=== PATIENT | female | born 1975 | race Hispanic/Latino ===

== ENCOUNTER 2016-03-27 02:00 | Emergency (ER) | payer OTHER ==
[~2016-03-27] VITALS: Ht 167.6 cm; Wt 77.1 kg
--- NOTE | 2016-03-27 04:06 | ED GI/GU/ABDOMINAL COMPLAINT ---
History of Present Illness General Chief Complaint: Abdominal Pain/Flank Pain Stated Complaint: "PER PT PAIN "RIGHT LOWER QUADRANT Source: patient, old records Exam Limitations: no limitations Vital Signs & Intake/Output Vital Signs & Intake/Output Vital Signs Date Time Temp Pulse Resp B/P Pulse O2 O2 Flow FiO2 Ox Delivery Rate 03/27 0248 97.8 84 18 144/84 100 Room Air Allergies Coded Allergies: NO KNOWN ALLERGIES (10/03/11) Reconcile Medications Diclofenac Sodium 75 MG TABLET.DR 1 TAB PO BID PRN PAIN Ondansetron (Zofran Odt) 4 MG TAB.RAPDIS 1 TAB SL Q6P PRN NAUSEA/VOMITING Triage Note: RLQ ABD PAIN STARTED AT MIDNIGHT, FEELS LIKE SOMETHING IS TWISTING, WORSE WITH MOVEMENT Triage Nurses Notes Reviewed? yes ? N Is pt currently ? No HPI: Patient presents for evaluation of right lower quadrant abdominal pain that began rather abruptly at about midnight (roughly 4 hours ago while at work). Patient is describing a constant pressure-like pain that fluctuates in intensity and gets worse with movements. Patient denies any prior episodes like this. Patient denies injury or trauma. She states while here in the emergency department she began feeling a pressure sensation when she urinated. She denies associated fever, cold symptoms, chest pain, shortness of breath, nausea, vomiting or diarrhea. Past History Travel History Traveled to [place] past 21 day No Medical History Any Pertinent Medical History? see below for history Neurological: NONE EENT: NONE Cardiovascular: NONE Respiratory: asthma Gastrointestinal: NONE Hepatic: NONE Renal: NONE Musculoskeletal: NONE Psychiatric: NONE Endocrine: NONE Blood Disorders: NONE Cancer(s): NONE Influenza Vaccine: 11/14/11 Surgical History Surgical History: non-contributory Psychosocial History What is your primary language [place] Citizen Tobacco Use: Never used Family History Hx Contributory? No Review of Systems Review of Systems Constitutional: Reports: no symptoms. EENTM: Reports: no symptoms. Respiratory: Reports: no symptoms. Cardiovascular: Reports: no symptoms. GI: Reports: see HPI. Genitourinary: Reports: no symptoms. Musculoskeletal: Reports: no symptoms. Skin: Reports: no symptoms. Neurological/Psychological: Reports: no symptoms. Hematologic/Endocrine: Reports: no symptoms. Immunologic/Allergic: Reports: no symptoms. All Other Systems: Reviewed and Negative Physical Exam Physical Exam Gastrointestinal: see below Comments: Gen.: Well-nourished, well-developed, no acute respiratory distress. Head: Normocephalic, atraumatic. Eyes: Normal inspection bilaterally Ears: Normal inspection bilaterally Nose: Normal inspection Throat/mouth : Moist mucosa Neck: Supple, full range of motion, no goiter Heart: Regular rate and rhythm, no murmurs rubs or gallops Lungs: Clear to auscultation bilaterally with normal air entry Chest: Nontender Back: Normal range of motion Abdomen: Soft, right lower quadrant abdominal tenderness without rebound or guarding or palpable masses, nondistended, normal bowel sounds Extremities: Normal range of motion grossly, equal radial pulses, no cyanosis clubbing or edema Neurologic: Cranial nerves grossly intact, speech is clear Skin: warm and dry Psychiatric: Calm, cooperative, no apparent delusions or hallucinations Core Measures ACS in differential dx? No Severe Sepsis Present: No Septic Shock Present: No Progress Differential Diagnosis: appendicitis, kidney stone, ovarian cyst Plan of Care: Orders Procedure Date/time Status LIPASE 03/27 404 Complete COMPREHENSIVE METABOLIC PANEL 03/27 404 Complete CBC WITHOUT DIFFERENTIAL 03/27 404 Complete URINE 03/27 024 Complete URINALYSIS 03/27 024 Complete Laboratory Tests 03/27/16 0427: Anion Gap 12, Estimated GFR > 60, BUN/Creatinine Ratio 18.8, Glucose 83, Calcium 9.1, Total Bilirubin 0.3, AST 21, ALT 36, Alkaline Phosphatase 63, Total Protein 7.2, Albumin 4.0, Globulin 3.2, Albumin/Globulin Ratio 1.3, Lipase 178, CBC w Diff NO MAN DIFF REQ, RBC 4.50, MCV 70.3 L, MCH 22.5 L, RDW 17.2 H, MPV 9.1, Gran % 60.6, Lymphocytes % 26.6, Monocytes % 7.7, Eosinophils % 4.3, Basophils % 0.8, Absolute Granulocytes 5.5, Absolute Lymphocytes 2.4, Absolute Monocytes 0.7 H, Absolute Eosinophils 0.4, Absolute Basophils 0.1, PUBS MCHC 32.0 L 03/27/16 0255: Urine Color YEL, Urine Clarity CLEAR, Urine pH 6.0, Ur Specific [place] 1.025, Urine Protein NEG, Urine Ketones TRACE H, Urine Nitrite NEG, Urine Bilirubin NEG, Urine Urobilinogen 0.2, Ur Leukocyte Esterase NEG, Ur Microscopic EXAM NOT REQUIRED, Urine Hemoglobin NEG, Urine Glucose NEG, Urine Test NEGATIVE Diagnostic Imaging: Discussed w/RAD: CT Scan. Radiology Impression: PATIENT: ROSMERY SILVA PRESENT AGE: 40 PATIENT ACCOUNT NO: [id number] : 76 LOCATION: [facility] ORDERING PHYSICIAN: MITCHELL ROSARIO MD SERVICE DATE: 03/27/16 EXAM TYPE: CAT - CT ABD & PELVIS W/O IV CONTRAS EXAMINATION: CT ABDOMEN AND PELVIS WITHOUT CONTRAST CLINICAL INFORMATION: Right lower quadrant abdominal pain with pressure during urination COMPARISON: 07/03/2012 TECHNIQUE: Multidetector volumetric imaging was performed from the superior aspect of the liver through the pubic symphysis. Sagittal and coronal reformatted images were obtained on the technologist's workstation. DLP: 676.55 mGy-cm FINDINGS: LUNG BASES: The visualized lung bases are unremarkable. LIVER, GALLBLADDER, AND BILIARY TREE: The liver is normal in size, shape, and attenuation. No focal hepatic lesion or biliary ductal dilatation is present. Patient is status post cholecystectomy. PANCREAS: Unremarkable. SPLEEN: Unremarkable. ADRENAL GLANDS: Unremarkable. KIDNEYS AND URETERS: The kidneys are normal in size, shape, and attenuation. No hydronephrosis, hydroureter, or calculi seen. No perinephric stranding. BLADDER: Only minimally distended and not well evaluated. GASTROINTESTINAL TRACT: The small and large bowel are unremarkable. The appendix is unremarkable. ABDOMINAL WALL: No significant hernia is appreciated. LYMPH NODES: Normal. VASCULAR: Unremarkable. PELVIC VISCERA: Grossly unremarkable. A small amount of free fluid is noted. OSSEOUS STRUCTURES: Unremarkable. IMPRESSION: Small volume of nonspecific pelvic free fluid which may be physiologic. No additional acute findings identified. DICTATED BY: WINSOME JOHNSON MD DATE/TIME DICTATED:03/27/16454 [place] SALESPERSON:BARBARA DATE/TIME TRANSCRIBED:03/27/16454 CONFIDENTIAL, DO NOT COPY WITHOUT APPROPRIATE AUTHORIZATION. <Electronically signed in Other Vendor System> SIGNED BY: WINSOME JOHNSON MD 03/27/16 3286 Initial ED EKG: none Comments: Patient declined pain medication. 03/27/2016 5:17:58 AM I have updated ROSMERY on her test results. The cause of her abdominal pain is unclear at this point. She will follow-up with her primary care doctor for reevaluation and further testing or perhaps for specialty referral. Departure Departure Disposition: HOME OR SELF CARE Condition: Stable Clinical Impression Primary Impression: Nonspecific abdominal pain Referrals: AILIN COLMENARES MD (PCP/Family) Additional Instructions: Zofran as needed for nausea or vomiting, Voltaren as needed for pain. Follow-up with your primary care doctor in 24-48 hours not improving. Return if any concerns or sudden worsening. Please note that there might be incidental findings in your evaluation that are unrelated to the current emergency department visit. Please notify your primary care doctor about this emergency department visit in order to obtain and review all of the testing performed so that these incidental findings can be monitored as needed. If you had an x-ray performed, please understand that some fractures may not be seen on the initial set of x-rays. If your symptoms persist you might need a repeat set of x-rays to check for such a fracture. If you had a laceration evaluated, please understand that foreign bodies such as glass or wood may not be visible to the naked eye or on plain x-rays. If the wound becomes red, swollen, increasingly more painful or if there is any drainage from the wound, please have it reevaluated by a physician for the possibility of a retained foreign body. Thank you for choosing the [facility] Emergency Department for your care. It was a pleasure to serve you today. Mitchell Rosario M.D. [facility] Departure Forms: Customer Survey General Discharge Information Prescriptions: Current Visit Scripts Diclofenac Sodium 1 TAB PO BID PRN PAIN #14 TAB Ondansetron (Zofran Odt) 1 TAB SL Q6P PRN NAUSEA/VOMITING #10 TAB
[2016-03-27 04:47] LABS: ABSOLUTE BASOPHIL COUNT 0.1 /CUMM (0.0-0.2); ABSOLUTE EOSINOPHIL COUNT 0.4 /CUMM (0.0-0.7); ABSOLUTE GRANULOCYTE CT 5.5 /CUMM (1.4-6.5); ABSOLUTE LYMPH COUNT 2.4 /CUMM (1.2-3.4); ABSOLUTE MONOCYTE COUNT 0.7 /CUMM (0.10-0.60); BASOPHIL % 0.8 % (0.0-2.0); EOSINOPHIL % 4.3 % (0-5); GRANULOCYTE % 60.6 % (42.2-75.2); HEMATOCRIT 31.6 % (37-47); MEAN CORPUSCULAR HGB 22.5 PG (27.0-31.0); MEAN CORPUSCULAR VOLUME 70.3 FL (81.0-99.0); MEAN PLATELET VOLUME 9.1 FL (7.4-10.4); PLATELET COUNT 258 /CUMM (130-400); RBC DISTRIBUTION WIDTH 17.2 % (11.5-14.5)
--- NOTE | 2016-03-27 05:05 | CT SCAN REPORT ---
EXAMINATION: CT ABDOMEN AND PELVIS WITHOUT CONTRAST CLINICAL INFORMATION: Right lower quadrant abdominal pain with pressure during urination COMPARISON: 07/03/2012 TECHNIQUE: Multidetector volumetric imaging was performed from the superior aspect of the liver through the pubic symphysis. Sagittal and coronal reformatted images were obtained on the technologist's workstation. DLP: 676.55 mGy-cm FINDINGS: LUNG BASES: The visualized lung bases are unremarkable. LIVER, GALLBLADDER, AND BILIARY TREE: The liver is normal in size, shape, and attenuation. No focal hepatic lesion or biliary ductal dilatation is present. Patient is status post cholecystectomy. PANCREAS: Unremarkable. SPLEEN: Unremarkable. ADRENAL GLANDS: Unremarkable. KIDNEYS AND URETERS: The kidneys are normal in size, shape, and attenuation. No hydronephrosis, hydroureter, or calculi seen. No perinephric stranding. BLADDER: Only minimally distended and not well evaluated. GASTROINTESTINAL TRACT: The small and large bowel are unremarkable. The appendix is unremarkable. ABDOMINAL WALL: No significant hernia is appreciated. LYMPH NODES: Normal. VASCULAR: Unremarkable. PELVIC VISCERA: Grossly unremarkable. A small amount of free fluid is noted. OSSEOUS STRUCTURES: Unremarkable. IMPRESSION: Small volume of nonspecific pelvic free fluid which may be physiologic. No additional acute findings identified.
[2016-03-27] MEDS ORDERED: ZOFRAN ODT4 M1 SL (05:12)
[2016-03-27] MEDS ORDERED: DICLOFENAC SODI75 M2 PO (05:12)
[2016-03-27 05:24] VITALS: BP 141/83
== END 2016-03-27 05:28 ==
LOC: ERH 02:00
PROVIDERS: Emergency Medicine
DX: R10.31 Right lower quadrant pain (principal)
CPT/HCPCS: 74176; 81003; 81025; 96372; J1885